=== PATIENT | male | born 1990 | race American Indian/Alaskan Native ===

== ENCOUNTER 2020-06-02 23:20 | Emergency (ER) | payer MEDICAID, OTHER ==
[2020-06-02] MEDS ORDERED: Cephalexin 500 MG Cap PO ONE (23:36)
[2020-06-02] MEDS ORDERED: Diphtheria,Pertussis(Acell),Tetanus Vaccine 0.5 ML Syringe IM ONE (23:36)
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
== END 2020-06-03 00:37 | disposition home or self-care (01) ==
LOC: EDSEX → EDBD → FB.ED 23:20 → EDSEX 23:20 → EDUNIT# 23:20 → FB.ED 06-03 00:37
DX: S61.432A Puncture wound without foreign body of left hand, initial encounter (principal); Z23 Encounter for immunization; W26.8XXA Contact with other sharp object(s), not elsewhere classified, initial encounter
CPT/HCPCS: 90471; 90715; 99283; A9270-GY